=== PATIENT | female | born 1965 | race African-American/Black ===

== ENCOUNTER 2016-07-06 05:54 | Emergency (ER) | payer MEDICAID ==
[~2016-07-06] VITALS: Ht 170.2 cm; Wt 90.0 kg
[2016-07-06 05:58] VITALS: BP 134/91
== END 2016-07-06 07:21 | disposition home or self-care (01) ==
LOC: ER 05:57
DX: J02.9 Acute pharyngitis, unspecified (principal); K02.9 Dental caries, unspecified; R03.0 Elevated blood-pressure reading, without diagnosis of hypertension
CPT/HCPCS: 99283